=== PATIENT | female | born 1940 | race Caucasian/White ===

== ENCOUNTER 2017-04-18 12:53 | Emergency (ER) | payer MEDICARE ==
[2017-04-18] MEDS ORDERED: Ondansetron HCl/PF 4 MG/2 ML Vial ONE (13:18)
[2017-04-18 13:32] LABS: #Basophils 0.1 thou/uL (0.0-0.2); #Lymphocytes 2.4 thou/uL (1.20-3.40); #Monocytes 0.6 thou/uL (0.11-0.59); #Neutrophils 3.6 thou/uL (1.40-6.50); %Basophils 0.9 % (0.0-1.0); %Eosinophils 0.6 % (0.0-10.0); %Lymphocytes 35.7 % (21.0-51.0); %Monocytes 9.2 % (0.0-10.0); Hematocrit 40.6 % (36.0-47.0); Mean Platelet Volume 8.8 fL (7.4-10.4); Red Blood Cell (RBC) Count 4.35 mill/uL (4.20-5.40); White Blood Cell (WBC) Count 6.6 thou/uL (4.8-10.8)
[2017-04-18 13:51] LABS: ALT (SGPT) 22 U/L (8-55); AST (SGOT) 29 U/L (5-34); Alkaline Phosphatase 64 U/L (40-150); Anion Gap 15 mmol/L (10-20); BUN (Urea Nitrogen) 16 mg/dL (9.8-20.1); Bilirubin, Total 0.5 mg/dL (0.2-1.2); CK (CPK) 178 U/L (29-168); Calc. Creatinine Clearance 0 mL/min (70-130); Calcium 9.8 mg/dL (7.8-10.44); Carbon Dioxide 24 mmol/L (23-31); Chloride 104 mmol/L (98-107); Estimated GFR-MDRD 68; Globulin 2.7 g/dL (2.4-3.5); Lipase 90 U/L (8-78); Protein, Total 7.1 g/dL (6.0-8.3); Troponin I Less than 0.010 ng/mL (< 0.028)
--- NOTE | 2017-04-18 14:24 | RAD ---
CHEST 1 VIEW: History Weakness. COMPARISON: 02/14/15. FINDINGS: The cardiac silhouette is magnified by projection. Pulmonary vasculature is unremarkable. Right he midiaphragm remains slightly elevated. There is no confluent airspace consolidation or evidence of pneumothorax. IMPRESSION: No active cardiopulmonary abnormalities are demonstrated. POS: [facility]
--- NOTE | 2017-04-18 17:05 | CT ---
CT PULMONARY ANGIOGRAM WITH IV CONTRAST AND 3D POSTPROCESSIN04/18/17 HISTORY: 77-year-old female with dyspnea. FINDINGS: There is good contrast opacification of the pulmonary arterial vasculature without filling defects t o suggest pulmonary embolism. The thoracic aorta is well opacified without aneurysmal dissection. No pleural or pericardial effusions are seen. No pneumothorax, focal areas of consolidation, pulmonary nodules or lung masses are seen. Upper abdominal tomograms demonstrates cysts in the liver. A smal l hiatal hernia is present. There are mild degenerative changes in the spine. IMPRESSION: No CT evidence of pulmonary embolism. POS: [facility]
== END 2017-04-18 17:03 | disposition home or self-care (01) ==
LOC: SCSER 12:53
DX: R53.83 Other fatigue (principal); E78.5 Hyperlipidemia, unspecified; Z79.82 Long term (current) use of aspirin; Z79.899 Other long term (current) drug therapy
CPT/HCPCS: 71010; 71275; 80053; 82550; 82553; 83690; 83880; 84484; 85025; 85379; 93005; J2405

== ENCOUNTER 2018-03-25 13:41 | Outpatient (CLI) | payer MEDICARE ==
--- NOTE | 2018-03-25 15:26 | MMO ---
BILATERAL SCREENING MAMMOGRAM: HISTORY: A 77-year-old female. Screening mammography. Right lumpectomy 10 years ago. COMPARISON: 03/24/2017, 03/11/2016, 02/12/2015, 01/31/2014 TECHNIQUE: CC and MLO views of both breasts were submitted for interpretation. This patient's mammogram is revi ewed with the assistance of computer aided detection. FINDINGS: There are scattered fibroglandular densities throughout the left and right breasts. In the left quynh st, no suspicious dominant mass, architectural distortion, or suspicious calcification. Benign appea ring calcifications are identified. Stable post surgical change with asymmetric breast parenchyma in the upper outer right breast. IMPRESSION: BI-RADS Category 2-Benign findings. RECOMMENDATIONS: Annual mammogram. POS: [facility]
== END 2018-03-25 13:42 | disposition home or self-care (01) ==
LOC: SCSMAMMO 13:41
PROVIDERS: ATTEND Obstetrics & Gynecology
DX: Z12.31 Encounter for screening mammogram for malignant neoplasm of breast (principal)
CPT/HCPCS: 77067

== ENCOUNTER 2018-09-05 16:25 | Emergency (ER) | payer MEDICARE ==
[2018-09-05] MEDS ORDERED: Promethazine HCl 25 MG/ML VIAL ONE (16:34)
[2018-09-05] MEDS ORDERED: Ondansetron PF 4 MG/2 ML Vial ONE (16:34)
[2018-09-05] MEDS ORDERED: Meclizine HCl 25 MG TAB ONE (16:59)
--- NOTE | 2018-09-05 17:55 | CT ---
CT BRAIN WITHOUT CONTRAST: History: Dizziness, nausea, and vomiting. Comparison: None. 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 No acute hemorrhage or infarction. No midline shift or mass effect. Ve ntricular size and extraaxial CSF spaces are normal. Air fluid level left maxillary sinuses. Mastoids are clear. Calvarium is intact. IMPRESSION: No acute intracranial abnormality. POS: [facility]
== END 2018-09-05 17:35 | disposition home or self-care (01) ==
LOC: SCSER 16:25
DX: H81.13 Benign paroxysmal vertigo, bilateral (principal); E78.5 Hyperlipidemia, unspecified; Z85.72 Personal history of non-Hodgkin lymphomas; Z79.82 Long term (current) use of aspirin; Z79.899 Other long term (current) drug therapy
CPT/HCPCS: 70450; 93005; 96365; 96375; J2405; J2550

== ENCOUNTER 2018-10-26 09:21 | Outpatient (CLI) | payer MEDICARE ==
--- NOTE | 2018-10-26 10:47 | BD ---
DEXA BONE DENSITY STUDY: HISTORY: Postmenopausal. LUMBAR SPINE BMD (g/cm2) T-SCORE L1 0.658 -3.0 L2 0.741 -2.6 L3 0.765 -2.9 L4 1.109 +0.4 TOTAL 0.850 -1.8 LEFT FEMORAL NECK 0.648 -1.8 TOTAL 0.887 -0.5 IMPRESSION: Osteopenia of the left femoral neck and lumbar spine. Of note, the T-score values of L1, L2, and L3 fall within the osteoporosis range. In comparison to the 2017 study, the T-scores of the lumbar spin e have improved from -2.3 to -1.8. The total femur bone mineral density is improved from -1.1 to -0. 5, although the femoral neck bone mineral density has not significantly changed. POS: [facility]
== END 2018-10-26 09:22 | disposition home or self-care (01) ==
LOC: BICMAMMO 09:21
PROVIDERS: ATTEND Obstetrics & Gynecology
DX: M81.0 Age-related osteoporosis without current pathological fracture (principal); Z78.0 Asymptomatic menopausal state; M85.89 Other specified disorders of bone density and structure, multiple sites
CPT/HCPCS: 77080

== ENCOUNTER 2019-07-15 13:30 | Inpatient (IN) | payer MEDICARE ==
[2019-07-18 11:51] VITALS: BMI 24.9
[2019-07-18 13:55] LABS: Hemoglobin 13.5 g/dL (12.0-16.0); Mean Corpuscular HGB CONC 33.6 g/dL (32.0-36.0); Mean Corpuscular Hemoglobin 31.6 pg (27.0-31.0); Mean Corpuscular Volume 94.3 fL (78.0-98.0); Mean Platelet Volume 7.8 fL (7.4-10.4); Platelet Count 242 thou/uL (130-400); RBC Distribution Width 11.4 % (11.5-14.5); Red Blood Cell (RBC) Count 4.28 mill/uL (4.20-5.40); White Blood Cell (WBC) Count 4.9 thou/uL (4.8-10.8)
[2019-07-18 14:09] LABS: PTT 27.3 SEC (22.9-36.1); Prothrombin Time 12.8 SEC (12.0-14.7)
[2019-07-18 14:27] LABS: Anion Gap 13 mmol/L (10-20); BUN (Urea Nitrogen) 13 mg/dL (9.8-20.1); Calc. Creatinine Clearance 0 mL/min (70-130); Calcium 9.5 mg/dL (7.8-10.44); Carbon Dioxide 26 mmol/L (23-31); Chloride 103 mmol/L (98-107); Estimated GFR-MDRD 72; Glucose 90 mg/dL (83-110); Potassium 3.8 mmol/L (3.5-5.1); Sodium 138 mmol/L (136-145)
[2019-07-19] MEDS ORDERED: Midazolam HCl 2 mg/2 ml Vial ONE (08:31)
[2019-07-19] MEDS ORDERED: Rocuronium Bromide 10 MG/ML (10ML VIAL) ONE (10:14)
[2019-07-19] MEDS ORDERED: ePHEDrine/0.9% NaCl/PF SYRINGE 50 mg/10 ml ONE (10:14)
[2019-07-19] MEDS ORDERED: Glycopyrrolate 0.2 MG/ML 5 ML SYRINGE ONE (10:14)
[2019-07-19] MEDS ORDERED: PROPOFOL 200 MG/20 ML VIAL ONE (10:14)
[2019-07-19] MEDS ORDERED: Ondansetron PF 4 MG/2 ML Vial ONE (10:14)
[2019-07-19] MEDS ORDERED: Lidocaine 1% PF 5 ML VIAL ONE (10:14)
[2019-07-19] MEDS ORDERED: Dexamethasone 20 MG/5 ML VIAL ONE (10:14)
[2019-07-19] MEDS ORDERED: PHENYLEPHRINE-NS 100 MCG/ML 10 ML SYRINGE ONE (10:14)
[2019-07-19] MEDS ORDERED: Sodium Chloride 0.9% 10 ML ONE (10:40)
[2019-07-19] MEDS ORDERED: Thrombin 5000 UNITS/5 ML VIAL ONE ×3 (10:40→14:03)
[2019-07-19] MEDS ORDERED: Fentanyl 100 MCG/2 ML VIAL ONE (10:57)
[2019-07-19] MEDS ORDERED: Albumin 5% 500 ML ONE (12:34)
[2019-07-19] MEDS ORDERED: Phenylephrine HCL 10 MG/ML VIAL ONE (12:46)
[2019-07-19] MEDS ORDERED: PACU-Morphine 4MG/ML VIAL SLOW IVP PRN (15:13)
[2019-07-19] MEDS ORDERED: Promethazine HCl 25 MG/ML VIAL SLOW IVP PRN (15:13)
[2019-07-19] MEDS ORDERED: Ondansetron HCl/PF 4 MG/2 ML Vial IVP PRN (15:13)
[2019-07-19] MEDS ORDERED: Promethazine HCl 25 MG/ML VIAL IM PRN (15:13)
[2019-07-19] MEDS ORDERED: Morphine Sulfate 2 MG/ML SYRINGE SLOW IVP PRN (15:13)
[2019-07-19] MEDS ORDERED: HYDROmorphone 2 MG/ML VIAL SLOW IVP PRN (15:13)
[2019-07-19] MEDS ORDERED: HYDROmorphone 2 MG/ML VIAL ONE (15:44)
[2019-07-19] MEDS ORDERED: traMADol HCl 50 MG TAB PO PRN (16:20)
[2019-07-19] MEDS ORDERED: Milk Of Magnesia 30 ML UDCUP PO PRN (16:20)
[2019-07-19] MEDS ORDERED: Fleet Enema 133 ML BOT PR PRN (16:20)
[2019-07-19] MEDS ORDERED: Bisacodyl 10 MG SUPP PR PRN (16:20)
[2019-07-19] MEDS ORDERED: Ondansetron PF 4 MG/2 ML Vial IVP PRN (16:20)
[2019-07-19] MEDS ORDERED: Mag-Al 1200 mg/1200 mg/30 ML UDCUP PO PRN (16:20)
[2019-07-19] MEDS ORDERED: Morphine 2 MG/ML SYRINGE SLOW IVP PRN (16:20)
[2019-07-19] MEDS: Sodium Chloride 0.9% 1,000 ML IV SCH ×2 (19:45→20:40)
[2019-07-19] MEDS: Vit A,C & E/Lutein/Minerals Tablet PO SCH (19:46)
[2019-07-19] MEDS: ALPRAZolam 0.5 MG TAB PO SCH (19:46)
[2019-07-19] MEDS: Rosuvastatin 5 MG TAB PO SCH (19:46)
[2019-07-19] MEDS: Ubidecarenone 50 MG CAP PO SCH (19:46)
[2019-07-19] MEDS: Potassium Chloride 8 MEQ TAB PO SCH (19:48)
[2019-07-19] MEDS: CEFAZOLIN 2 GM in Premix Bag 1 BAG IVPB SCH (19:48)
[2019-07-20] MEDS: tiZANidine HCl 4 MG TAB PO PRN ×2 (02:40→13:34)
[2019-07-20] MEDS: HYDROcodone/Acetaminophen 7.5/325 mg Tablet PO PRN ×5 (02:40→22:14)
[2019-07-20] MEDS: CEFAZOLIN 2 GM in Premix Bag 1 BAG IVPB SCH ×3 (04:51→22:45)
[2019-07-20 05:48] LABS: #Basophils 0.1 thou/uL (0.0-0.2); #Monocytes 0.8 thou/uL (0.11-0.59); #Neutrophils 6.5 thou/uL (1.40-6.50); %Eosinophils 0.2 % (0.0-10.0); %Lymphocytes 11.8 % (21.0-51.0); %Monocytes 9.8 % (0.0-10.0); %Neutrophils 77.1 % (42.0-75.0); Hemoglobin 9.8 g/dL (12.0-16.0); Mean Corpuscular HGB CONC 33.8 g/dL (32.0-36.0); Mean Corpuscular Hemoglobin 31.9 pg (27.0-31.0); Mean Corpuscular Volume 94.4 fL (78.0-98.0); Mean Platelet Volume 8.1 fL (7.4-10.4); Platelet Count 176 thou/uL (130-400); RBC Distribution Width 11.1 % (11.5-14.5); Red Blood Cell (RBC) Count 3.06 mill/uL (4.20-5.40); White Blood Cell (WBC) Count 8.4 thou/uL (4.8-10.8)
[2019-07-20 06:12] LABS: Anion Gap 9 mmol/L (10-20); BUN (Urea Nitrogen) 11 mg/dL (9.8-20.1); Calc. Creatinine Clearance 72 mL/min (70-130); Calcium 7.7 mg/dL (7.8-10.44); Carbon Dioxide 26 mmol/L (23-31); Chloride 108 mmol/L (98-107); Estimated GFR-MDRD 86; Glucose 122 mg/dL (83-110); Sodium 139 mmol/L (136-145)
[2019-07-20] MEDS: Calcium Carbonate + Vit D 250 MG TAB PO SCH (08:45)
[2019-07-20] MEDS: Vit A,C & E/Lutein/Minerals Tablet PO SCH ×2 (08:45→22:14)
--- NOTE | 2019-07-20 09:16 | OP ---
DATE OF PROCEDURE: 07/19/2019 [employer] CERTIFIED NETWORK ASSOCIATE: Shania Melton PA-C. PREPROCEDURE DIAGNOSES: 1. Lumbar spondylolisthesis with chronic left L3 pedicle fracture and right L3 spondylolysis with progression of spondylolisthesis. 2. Low back and left leg pain greater than right leg pain. POSTPROCEDURE DIAGNOSES: 1. Lumbar spondylolisthesis with chronic left L3 pedicle fracture and right L3 spondylolysis with progression of spondylolisthesis. 2. Low back and left leg pain greater than right leg pain. PROCEDURES PERFORMED: 1. L3-L4 Nwe laminectomy with removal of abnormal facets in the pars for decompression of common dural tube at the exiting L3 and L4 nerve roots. 2. Placement of screw and rosa fixation, L3-L4. 3. Arthrodesis, L3-L4 posterolaterally with local bone autograft obtained from same incision of allograft and BMP. DESCRIPTION OF PROCEDURE: After informed consent was obtained from the patient, the patient was brought to the OR. Proper patient, pause, and identification were carried out. She was placed under excellent general endotracheal anesthesia and positioned prone on the OR table. All appropriate points were padded. We identified the L3-L4 dorsal spines. A linear dewey was drawn out over this area. This area was sterilely cleansed, prepared, and draped. Proper patient, pause, and identification were carried out. The wound was then opened with a combination of sharp, monopolar, and blunt dissection. The L3-L4 segments including dorsal spines, lamina, and abnormal facets were exposed. Pars fracture in the right L3 segment was identified. A New type laminectomy was performed with removal of the abnormal facets as well for complete decompression of the common dural tube in the exiting L3 and traversing L4 nerve roots. It became quite clear given the lordotic tilt of L3 into L4 that the inferior endplate of L3 and superior endplate of L4 could not be for interbody spacer placement and the patient's bone was quite osteoporotic and it was easier essentially to go into the L3 inferior vertebral body and L4 superior vertebral bodies and was to get into the disk space. As such, I opted for a posterolateral fusion at L3-L4 only. I then, using standard gross and fluoroscopic visualization, placed pedicle screws at L3 and L4. I used somewhat smaller diameter screws in typical as her pedicles were small and her bone quality was quite soft with significant osteoporosis. We were satisfied with gross and fluoroscopic visualization and CT scan spin during the decompression; however, I should note that her left L3 nerve root sleeve was quite thin including its attachment to the apparent dural tube and she did leak in the axilla of the left L3 nerve root a small amount of spinal fluid. I was able to pack this and this sealed on its own. We then turned our attention to final tightening once placement of rods occurred, placement of the BMP, local bone autograft obtained from same incision and allograft out in the posterior lateral regions, and DuraSeal was applied over the dura to protect it from BMP and to act as a dural sealant. The wound was then copiously irrigated, closed in anatomic layers, following meticulous hemostasis and sprinkling vancomycin powder. The patient emerged from anesthesia. Job ID: [id number]
--- NOTE | 2019-07-20 09:27 | PRG ---
DATE OF SERVICE: Ms. Rossi is postoperative day 1 from L3-L4 decompression fusion. She has left iliopsoas weakness and pain, but she is able to bend her knee up, but her strength is 3 minus. I suspect this is some irritation of the psoas muscle on the left side as her pedicles were quite thin and placement of the construct is certainly challenging. This will improve over time. Her hemoglobin is 9.8. We will give her 1 unit of blood as her blood pressure is a bit low at 98/60. We will mobilize her and the brace has been fitted. Job ID: [id number]
[2019-07-20 14:18] LABS: Hemoglobin 10.7 g/dL (12.0-16.0)
[2019-07-20] MEDS: Sodium Chloride 0.9% 1,000 ML IV SCH (18:43)
[2019-07-20] MEDS: Ubidecarenone 50 MG CAP PO SCH (22:13)
[2019-07-20] MEDS: Rosuvastatin 5 MG TAB PO SCH (22:14)
[2019-07-20] MEDS: ALPRAZolam 0.5 MG TAB PO SCH (22:15)
[2019-07-20] MEDS: Potassium Chloride 8 MEQ TAB PO SCH (22:51)
[2019-07-21] MEDS: CEFAZOLIN 2 GM in Premix Bag 1 BAG IVPB SCH ×2 (05:10→14:18)
[2019-07-21] MEDS: tiZANidine HCl 4 MG TAB PO PRN (05:14)
[2019-07-21] MEDS: HYDROcodone/Acetaminophen 7.5/325 mg Tablet PO PRN ×2 (05:14→17:17)
[2019-07-21] MEDS ORDERED: tiZANidine HCl 4 MG TAB PO PRN (07:28)
[2019-07-21 08:25] LABS: #Lymphocytes 1.3 thou/uL (1.20-3.40); #Monocytes 1.1 thou/uL (0.11-0.59); #Neutrophils 6.5 thou/uL (1.40-6.50); %Basophils 0.1 % (0.0-1.0); %Eosinophils 0.5 % (0.0-10.0); %Lymphocytes 14.3 % (21.0-51.0); %Monocytes 12.4 % (0.0-10.0); %Neutrophils 72.7 % (42.0-75.0); Hemoglobin 10.5 g/dL (12.0-16.0); Mean Corpuscular HGB CONC 33.5 g/dL (32.0-36.0); Mean Corpuscular Hemoglobin 31.8 pg (27.0-31.0); Mean Corpuscular Volume 94.9 fL (78.0-98.0); Mean Platelet Volume 7.9 fL (7.4-10.4); Platelet Count 153 thou/uL (130-400); RBC Distribution Width 11.8 % (11.5-14.5); Red Blood Cell (RBC) Count 3.29 mill/uL (4.20-5.40); White Blood Cell (WBC) Count 8.9 thou/uL (4.8-10.8)
[2019-07-21 08:44] LABS: Anion Gap 8 mmol/L (10-20); BUN (Urea Nitrogen) 10 mg/dL (9.8-20.1); Calc. Creatinine Clearance 69 mL/min (70-130); Carbon Dioxide 28 mmol/L (23-31); Chloride 103 mmol/L (98-107); Estimated GFR-MDRD 82; Glucose 119 mg/dL (83-110); Potassium 3.6 mmol/L (3.5-5.1); Sodium 135 mmol/L (136-145)
--- NOTE | 2019-07-21 09:11 | PRG ---
DATE OF SERVICE: 07/21/2019 Ms. Rossi is postoperative day #2 from L3-L4 decompression and fusion. She is in good spirits this morning and states that her pain is well controlled with oral pain medications. She states that her left iliopsoas pain has improved compared to yesterday and she has improvement in strength of her left lower extremity iliopsoas myotome. She is able to bend her knee more easily on the left. She has excellent strength throughout her bilateral lower extremity myotome. She was able to get her LSO brace fitted yesterday. She has since been mobilizing and was able to get up and ambulate to the restroom to brush her teeth last night. She still has a James catheter in place. Hemoglobin improved to 10.7 yesterday after receiving 1 unit of packed red blood cells. We will reassess CBC and BMP this morning. The patient has low blood pressure of 87/46 when seen around 7 o'clock this morning. We will continue to monitor this closely. We have changed the orders of tizanidine 4 mg to a decreased dose of 2 mg p.o. q.8 hours as needed for muscle spasm. At this time, we have consulted case management for [facility]. This was then discussed with the patient and she also agrees that it would be favorable for her to go to inpatient rehab for further mobilization and strength improvement. We will complete the MOT for this. We will re-evaluate the patient tomorrow, call sooner for any neurologic changes or concerns. Job ID: [id number]
[2019-07-21] MEDS: Vit A,C & E/Lutein/Minerals Tablet PO SCH ×2 (10:15→20:41)
[2019-07-21] MEDS: Calcium Carbonate + Vit D 250 MG TAB PO SCH (10:15)
[2019-07-21] MEDS: Acetaminophen 325 MG TAB PO PRN ×2 (10:23→20:52)
[2019-07-21] MEDS: Sodium Chloride 0.9% 1,000 ML IV SCH ×2 (14:18→22:21)
[2019-07-21] MEDS: Ubidecarenone 50 MG CAP PO SCH (20:41)
[2019-07-21] MEDS: Rosuvastatin 5 MG TAB PO SCH (20:41)
[2019-07-21] MEDS: Potassium Chloride 8 MEQ TAB PO SCH (20:41)
[2019-07-21] MEDS: ALPRAZolam 0.5 MG TAB PO SCH (20:53)
[2019-07-22] MEDS: HYDROcodone/Acetaminophen 7.5/325 mg Tablet PO PRN ×3 (01:15→21:57)
[2019-07-22] MEDS: Sodium Chloride 0.9% 1,000 ML IV SCH (04:08)
[2019-07-22] MEDS: Acetaminophen/Codeine 30-300mg Tablet PO PRN ×2 (04:09→08:27)
[2019-07-22] MEDS: Calcium Carbonate + Vit D 250 MG TAB PO SCH (08:21)
[2019-07-22] MEDS: Vit A,C & E/Lutein/Minerals Tablet PO SCH ×2 (08:21→22:00)
--- NOTE | 2019-07-22 12:50 | PRG ---
DATE OF SERVICE: 07/22/2019 Ms. Rossi is postoperative day #3 having undergone L3-L4 laminectomy with posterior lumbar fusion. The patient is doing well from a neurosurgical standpoint. She has been ambulating. Her left groin and hip pain have improved over the past few days. Her blood pressure is also improved as we have tried to limit her narcotic pain medication and muscle relaxants. The patient remains with good strength in the bilateral lower extremities. We hope to discharge her to inpatient rehab today and all her paperwork has been completed. Reviewed appropriate postoperative activity restrictions and wound care. The patient is very pleased with her outcome postoperatively and again we hope for discharge to inpatient rehab today. Job ID: [id number]
[2019-07-22] MEDS: ALPRAZolam 0.5 MG TAB PO SCH (21:58)
[2019-07-22] MEDS: Ubidecarenone 50 MG CAP PO SCH (22:00)
[2019-07-22] MEDS: Potassium Chloride 8 MEQ TAB PO SCH (22:00)
[2019-07-22] MEDS: Rosuvastatin 5 MG TAB PO SCH (22:00)
[2019-07-23] MEDS: Sodium Chloride 0.9% 1,000 ML IV SCH ×2 (02:52→15:34)
[2019-07-23] MEDS: HYDROcodone/Acetaminophen 7.5/325 mg Tablet PO PRN (03:12)
[2019-07-23] MEDS: Calcium Carbonate + Vit D 250 MG TAB PO SCH (08:30)
[2019-07-23] MEDS: Vit A,C & E/Lutein/Minerals Tablet PO SCH (08:30)
--- NOTE | 2019-07-23 08:43 | PRG ---
DATE OF SERVICE: 07/23/2019 The patient is postoperative day #4, status post L3-L4 laminectomy with fusion. Her pain and mobilization continue to improve with time and working with Physical Therapy. Her blood pressure has also improved as we have been watching her narcotic pain use. She is now getting up out of the bed with the assistance of nursing staff and ambulating to the bathroom. She continues to have a James catheter. On exam this morning, the patient is awake, alert, no acute distress. She has some pain with left straight leg raise. She is slightly weak over the left proximal leg. Sensation is intact to light touch. Skin is clean, dry, and intact. The patient continues to improve slowly with time. We will go ahead and remove her James catheter. I feel that she is appropriate for dismissal to rehab hopefully later today. Job ID: [id number]
[2019-07-23 12:01] VITALS: TEMP 98.2
[2019-07-23 15:13] VITALS: BP 115/72
[2019-07-23] MEDS: Acetaminophen/Codeine 30-300mg Tablet PO PRN (15:33)
== END 2019-07-23 19:30 | DRG 460 ==
LOC: SURG A 07-19 07:43
PROVIDERS: ADMIT Surgery; ATTEND Surgery
PROC: 0SG0071 Fusion of Lumbar Vertebral Joint with Autologous Tissue Substitute, Posterior Approach, Posterior Column, Open Approach (ICD-10-PCS; principal; 2019-07-19)
PROC: 3E0U0GB Introduction of Recombinant Bone Morphogenetic Protein into Joints, Open Approach (ICD-10-PCS; 2019-07-19)
PROC: 01NB0ZZ Release Lumbar Nerve, Open Approach (ICD-10-PCS; 2019-07-19)
DX: M43.16 Spondylolisthesis, lumbar region (principal); G97.41 Accidental puncture or laceration of dura during a procedure; M48.062 Spinal stenosis, lumbar region with neurogenic claudication; M54.16 Radiculopathy, lumbar region; I10 Essential (primary) hypertension; E78.5 Hyperlipidemia, unspecified; Z98.51 Tubal ligation status; M43.06 Spondylolysis, lumbar region; Y83.8 Other surgical procedures as the cause of abnormal reaction of the patient, or of later complication, without mention of misadventure at the time of the procedure; Y92.234 Operating room of hospital as the place of occurrence of the external cause
CPT/HCPCS: 36415; 36430; 76000; 80048; 85025; 85027; 85610; 85730; 86850; 86900; 86901; 93005; C1713; J0690; J1100; J1170; J2001; J2250; J2370; J2405; J2704; J3010; J3370; J3490; L0639; P9016; P9045

== ENCOUNTER 2019-07-18 08:02 | Outpatient (CLI) | payer MEDICARE ==
--- NOTE | 2019-07-19 11:09 | EKG ---
Test Reason : Blood Pressure : / mmHG Vent. Rate : 074 BPM Atrial Rate : 074 BPM P-R Int : 152 ms QRS Dur : 092 ms QT Int : 402 ms P-R-T Axes : 076 072 070 degrees QTc Int : 446 ms Normal sinus rhythm Normal ECG When compared with ECG of 05-SEP-2018 16:34, No significant change was found Confirmed by DR. Keara BANSAL ([id number]) on 07/19/2019 11:09:26 AM Referred By: JAMES Confirmed By:DR. Keara BANSAL
== END 2019-07-18 08:03 | disposition home or self-care (01) ==
LOC: LABBT 08:02
PROVIDERS: ATTEND Surgery
DX: Z01.818 Encounter for other preprocedural examination (principal); M43.16 Spondylolisthesis, lumbar region; M48.061 Spinal stenosis, lumbar region without neurogenic claudication; M54.16 Radiculopathy, lumbar region
CPT/HCPCS: 93005; 93010

== ENCOUNTER 2019-08-16 14:40 | Observation (INO) | payer MEDICARE ==
[2019-08-16 15:27] LABS: Hemoglobin 13.5 g/dL (12.0-16.0); Mean Corpuscular HGB CONC 32.9 g/dL (32.0-36.0); Mean Corpuscular Hemoglobin 30.7 pg (27.0-31.0); Mean Corpuscular Volume 93.5 fL (78.0-98.0); Mean Platelet Volume 7.5 fL (7.4-10.4); Platelet Count 194 thou/uL (130-400); RBC Distribution Width 12.5 % (11.5-14.5); White Blood Cell (WBC) Count 7.7 thou/uL (4.8-10.8)
--- NOTE | 2019-08-16 15:28 | RAD ---
Exam: Chest one view HISTORY:Hypotension. Previous surgery. Comparison: 04/18/2017 FINDINGS: Cardiac silhouette: Normal Aorta: Unremarkable Pulmonary vessels: Normal Costophrenic angles: Clear LUNGS: No masses or consolidation. Pneumothorax: None Osseous abnormalities: None IMPRESSION: No acute cardiopulmonary process.
[2019-08-16 15:44] LABS: ALT (SGPT) 28 U/L (8-55); AST (SGOT) 19 U/L (5-34); Albumin 3.8 g/dL (3.4-4.8); Alkaline Phosphatase 87 U/L (40-110); Anion Gap 12 mmol/L (10-20); BUN (Urea Nitrogen) 13 mg/dL (9.8-20.1); Bilirubin, Total 0.7 mg/dL (0.2-1.2); Calc. Creatinine Clearance 0 mL/min (70-130); Calcium 8.7 mg/dL (7.8-10.44); Carbon Dioxide 24 mmol/L (23-31); Chloride 107 mmol/L (98-107); Estimated GFR-MDRD 77; Globulin 2.2 g/dL (2.4-3.5); Glucose 87 mg/dL (83-110); Potassium 4.1 mmol/L (3.5-5.1); Sodium 139 mmol/L (136-145)
[2019-08-16 15:55] LABS: Band 7 % (5-11); Eosinophils 3 % (0-10); Lymphocytes 13 % (21-51); MDiff Complete? YES; Monocytes 19 % (0-10); Neutrophil 54 % (42-75); Platelet Morphology Comment Appears Adequate; Polychromasia SLIGHT = 2-3 cells (100X) (0-2/hpf); Reactive Lymphocytes 4 % (0-10)
--- NOTE | 2019-08-16 16:16 | CT ---
Exam: Head CT without contrast HISTORY: Altered mental status COMPARISON: 09/05/2018 FINDINGS: Hemorrhage: No intraparenchymal hemorrhage or extra-axial hematoma. Brain parenchyma: Cortical gordon-white matter differentiation is preserved. No mass effect or midline shift. Basilar cisterns are patent. Ventricular system: Ventricles and sulci are patent and symmetric. Calvarium: Intact. Sinuses and mastoid air cells: Adequate aeration. IMPRESSION: No acute intracranial process.
[2019-08-16 17:13] LABS: Bilirubin Negative (Negative); Blood, Urine Negative (Negative); Clarity Turbid (Clear); Glucose, Urine (Dipstick) Normal (Negative); Leukocyte Negative Leu/uL (Negative); Nitrite Negative (Negative); Protein, Urine (Dipstick) 10 mg/dL (Neg-Trace); Urobilinogen Normal mg/dL (Less than 2)
[2019-08-16] MEDS ORDERED: Ondansetron ODT 4 MG TAB PO PRN (20:05)
[2019-08-16] MEDS ORDERED: Guaifenesin DM 100-10/5 ML UDCUP PO PRN (20:05)
[2019-08-16] MEDS ORDERED: Acetaminophen 650 MG Suppository PR PRN (20:05)
[2019-08-16] MEDS ORDERED: Ondansetron PF 4 MG/2 ML Vial IVP PRN (20:05)
[2019-08-16] MEDS ORDERED: Acetaminophen 325 MG TAB PO PRN (20:05)
[2019-08-16] MEDS ORDERED: Rosuvastatin 5 MG TAB PO SCH (21:00)
[2019-08-16] MEDS ORDERED: Ubidecarenone 50 MG CAP PO SCH (21:00)
[2019-08-16] MEDS ORDERED: Senokot S 8.6-50 MG TAB PO PRN (21:00)
--- NOTE | 2019-08-16 21:15 | HP ---
PRIMARY CARE PHYSICIAN: Shai Alexandre MD. CHIEF COMPLAINT: Weakness and hypotension. HISTORY OF PRESENT ILLNESS: This is a 79-year-old white female, who is in the hospital about 1 month ago for laminectomy of L3-L4 by Dr. Grant. She had had some back pain and numbness and tingling down to her leg from a chronic back problem. During or after the surgery in the hospital, she had some low blood pressures, but she did well with physical therapy. She went to rehab and continued to improve. She has no more numbness, tingling, or pain and has been improving with her ambulation. She was not eating very well however at the rehab. Once she was discharged, she did go to her daughter and son-in-law's house where they have been getting agreed a lot more her appetite has improved and she has actually gained some weight. She was doing well there; however, over the last week, she has been getting a little bit weaker and in the last 2 days, she has been significantly weak. The home health nurse did notice some low blood pressures at one point down to 80 systolic, though usually in the 100s to 110s and then today, the patient had blood pressure down to the low 80s systolic and they called the doctor's office and were told to come in the emergency room. She just felt weak during that time and maybe a little bit lightheaded, but was able to do physical therapy today in spite of that, and had no syncopal episodes or chest pain or shortness of breath or any other symptoms with it, just feeling overall weak. In the emergency room, the patient's blood pressure was normal up to 120 systolic. However, after she got to the emergency room, she became very confused. She had a hard time getting her words out, maybe a little bit of slurred speech and very slow responses and she could not remember medical details to get to the doctor, had a hard time thinking of what was going on. This slowly cleared over about 15 to 30 minutes and she is back to her baseline mental status now. She had no focal neurologic signs at that time per the ER doctor and her blood pressure and vital signs were all stable. I did a CT scan of the head that was negative, so she is being put on observation to rule out acute stroke versus a TIA. PAST MEDICAL HISTORY: 1. 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 2. Hyperlipidemia. 3. Undetermined cardiac issue causing some presyncopal spells in the past. She was put on Cartia XT by her primary care doctor with resolution of these spells. Never had any high blood pressure though. No diagnosed arrhythmias. PAST SURGICAL HISTORY: 1. Surgery to the left neck for lymphoma removal. 2. Partial colectomy for lymphoma removal. 3. Appendectomy. 4. Tonsillectomy. 5. L3-L4 laminectomy. SOCIAL HISTORY: No tobacco, alcohol, or illicit drug use. She usually lives with her . Currently, she is living with her daughter and son-in-law while she recovers from surgery and her had been in the SNF for recent illness, he has just gotten back home. FAMILY HISTORY: Father with heart disease in his late 60s and prostate cancer. Mother with colon cancer. ALLERGIES: NO KNOWN DRUG ALLERGIES. CURRENT MEDICATIONS: 1. Omeprazole 20 mg two times a day. 2. Cartia XT 120 mg daily. 3. Rosuvastatin 5 mg daily. 4. Calcium plus D two tablets daily. 5. Coenzyme Q10 of 100 mg daily. 6. [place]-3-6-9 of 1200 mg daily. 7. Potassium 99 mg daily. 8. PreserVision AREDS 2 one capsule two times a day. REVIEW OF SYSTEMS: CONSTITUTIONAL: No fevers. No chills. EYES: No double vision or blurred vision. ENT: No congestion, drainage, or sore throat. CARDIOVASCULAR: No chest pain. No palpitations or racing heart. PULMONARY: No coughing, wheezing, or shortness of breath. GASTROINTESTINAL: No abdominal pain. She did have a little nausea after she ate Polish food for lunch. No vomiting that has now resolved. She had a little bit of constipation up until the last couple of days she has not taken any [place] since Thursday and her constipation is now resolved. No diarrhea. GENITOURINARY: No dysuria or hematuria. MUSCULOSKELETAL: No muscle aches or joint pains. Her back feels much much better since the surgery. SKIN: No rashes or lesions noted. NEUROLOGICAL: No numbness, tingling, or focal weakness. PHYSICAL EXAMINATION: VITAL SIGNS: Blood pressure 122/83, pulse 84, respirations 21, temperature 98.6, O2 saturation 97% on room air. GENERAL: This is a well-developed, well-nourished white female, in no acute distress. HEENT: Pupils equal, round, and reactive to light. Oropharynx clear without lesions, erythema, or exudate. NECK: Supple. No lymphadenopathy. No thyroid nodules or enlargement. No JVD. HEART: Regular rate and rhythm. No murmurs, rubs, or gallops. LUNGS: Clear to auscultation bilaterally. No wheezes, crackles, or rhonchi. ABDOMEN: Soft, nontender to palpation. Normoactive bowel sounds. No hepatosplenomegaly or other masses. EXTREMITIES: No clubbing, cyanosis, or edema. SKIN: No rashes or other lesions noted. Her incision over her lumbar spine is healing very well. NEUROLOGICAL: Intact strength and sensation in all extremities. Deep tendon reflexes 2+ in all extremities. No facial droop. No slurring of speech. No problems with word finding. Her memory is intact. PSYCHIATRIC: Alert, oriented x3. Normal mood and affect. LABORATORY DATA: CBC within normal limits. Complete metabolic panel is within normal limits. Troponin is negative x1. Urinalysis is negative for infection. Chest x-ray, I did review the chest x-ray done in the emergency room along with the radiologist's report. There is no evidence of acute cardiopulmonary process. CT of the brain done in the emergency room shows no evidence of acute stroke or other intracranial abnormality. ASSESSMENT AND PLAN: 1. Altered mental status, self-limited in the emergency room with slurred speech and trouble with word finding and memory loss. This is completely resolved. Concerned about the possibility of a transient ischemic attack or stroke, we will get an MRI of the brain and observe the patient in the hospital overnight. 2. Hypotension. The patient had some low blood pressures in the hospital during her previous hospitalization and then had this significant hypotension at home associated with weakness. We will go ahead and hold the patient's Cartia XT for now. Depending on how her blood pressure does tomorrow, we may restart it at a lower dose. If she does have any significant drops in blood pressure or abnormalities on her telemetry monitoring, then we may need to get Cardiology see her tomorrow. We will go ahead and get orthostatic blood pressures as well. 3. Hyperlipidemia. Resume the patient's home medication. 4. Gastrointestinal prophylaxis. We will resume the patient's omeprazole. 5. Deep venous thrombosis prophylaxis. Put the patient on Lovenox subcu. 6. Code status. I did discuss this with the patient. She is a full code. Should she be incapacitated, her medical decision maker will be her . His name is Pritesh Rossi followed by her daughter, Vianey Mac. Job ID: [id number]
[2019-08-17] MEDS: Vit A,C & E/Lutein/Minerals Tablet PO SCH ×2 (01:51→09:53)
[2019-08-17] MEDS: Sodium Chloride 0.9% 1,000 ML IV SCH ×2 (01:57→09:58)
[2019-08-17 03:33] VITALS: BMI 25.5
[2019-08-17 05:06] LABS: Anion Gap 10 mmol/L (10-20); BUN (Urea Nitrogen) 10 mg/dL (9.8-20.1); Calc. Creatinine Clearance 74 mL/min (70-130); Calcium 7.9 mg/dL (7.8-10.44); Carbon Dioxide 24 mmol/L (23-31); Chloride 110 mmol/L (98-107); Estimated GFR-MDRD 86; Glucose 97 mg/dL (83-110); Potassium 3.8 mmol/L (3.5-5.1); Sodium 140 mmol/L (136-145)
[2019-08-17 05:38] LABS: Hemoglobin 11.6 g/dL (12.0-16.0); Mean Corpuscular HGB CONC 32.6 g/dL (32.0-36.0); Mean Corpuscular Hemoglobin 30.9 pg (27.0-31.0); Mean Corpuscular Volume 94.7 fL (78.0-98.0); Mean Platelet Volume 7.4 fL (7.4-10.4); Platelet Count 172 thou/uL (130-400); RBC Distribution Width 12.6 % (11.5-14.5); Red Blood Cell (RBC) Count 3.75 mill/uL (4.20-5.40); White Blood Cell (WBC) Count 6.2 thou/uL (4.8-10.8)
[2019-08-17 05:39] LABS: Band 13 % (5-11); Eosinophils 3 % (0-10); Lymphocytes 24 % (21-51); MDiff Complete? YES; Monocytes 8 % (0-10); Neutrophil 52 % (42-75)
--- NOTE | 2019-08-17 08:07 | PDOC.HOSPP ---
- Subjective Encounter Date: 08/17/19 Encounter Time: 09:45 Subjective: Patient with no further AMS. BP holding up well with d/c of diltiazem and no arrhythmias. - Objective Vital Signs & Weight: Vital Signs (12 hours) Temp Pulse Resp BP BP BP Pulse Ox 08/17/19 07:31 98.4 F 75 12 114/75 95 08/17/19 04:00 97.8 F 88 16 115/76 123/92 H 115/76 94 L 08/16/19 22:04 98.5 F 81 18 120/77 97 08/16/19 22:00 98.5 F 81 18 120/77 97 Weight Weight 149 lb Result Diagrams: 08/17/19 04:38 08/17/19 04:38 Hospitalist ROS - Review of Systems Constitutional: denies: fever, chills Respiratory: denies: cough, shortness of breath Cardiovascular: denies: chest pain, palpitations, orthopnea Gastrointestinal: denies: nausea, vomiting, abdominal pain Neurological: denies: weakness, numbness, change in speech, confusion - Medication Medications: Active Medications Generic Name Dose Route Start Last Admin Trade Name Freq PRN Reason Stop Dose Admin Coenzyme Q10 100 mg 08/16/19 21:00 08/17/19 01:51 Coenzyme Q10 PO 100 mg HS KYLE Administration Sodium Chloride 1,000 mls @ 125 mls/hr 08/17/19 01:45 08/17/19 01:57 Normal Saline 0.9% IV 1,000 mls .Q8H KYLE Administration Multivitamins/Minerals 1 tab 08/16/19 21:00 08/17/19 01:51 Ocuvite With Lutein PO 1 tab BID KYLE Administration Rosuvastatin Calcium 5 mg 08/16/19 21:00 08/17/19 01:51 Crestor PO 5 mg HS KYLE Administration - Exam General Appearance: NAD, awake alert ENT: moist mucosa Heart: RRR, no murmur, no gallops, no rubs Respiratory: CTAB, no wheezes, no rales, no ronchi Gastrointestinal: soft, non-tender, non-distended, normal bowel sounds Neurological: no focal deficits Psychiatric: normal affect, normal behavior, A&O x 3 Hosp A/P (1) AMS (altered mental status) Code(s): R41.82 - ALTERED MENTAL STATUS, UNSPECIFIED Status: Resolved (2) Hypotension Status: Resolved (3) Hyperlipidemia Code(s): E78.5 - HYPERLIPIDEMIA, UNSPECIFIED Status: Chronic - Plan BP doing well overnight, no orthostasis Holding diltiazem MRI pending, if negative can d/c home f/u cardiology outpatient about diltiazem
[2019-08-17] MEDS ORDERED: Enoxaparin Sodium 40 MG/0.4 ML SYRINGE SC SCH (09:00)
[2019-08-17] MEDS ORDERED: Calcium Carbonate + Vit D 1 TAB PO SCH (09:00)
[2019-08-17 11:41] VITALS: TEMP 99.6
--- NOTE | 2019-08-17 13:08 | MRI ---
MRI BRAIN WITHOUT CONTRAST: HISTORY: Altered mental status CORRELATION: CT scan from 08/16/2019. FINDINGS: No restricted diffusion is seen. There are foci of T2 prolongation in the periventricular white matte r, consistent with chronic small vessel ischemic disease. The ventricular size is appropriate and the basilar cisterns are patent. No evidence of acute infarct, hemorrhage, midline shift is seen. There is a small arachnoid cyst in t he left middle cranial fossa. The visualized paranasal sinuses and mastoid air cells are well-aerated. IMPRESSION: No evidence of acute intracranial process.
[2019-08-17 15:03] VITALS: BP 97/72
[2019-08-17] MEDS ORDERED: Potassium Chloride 8 MEQ TAB PO SCH (21:00)
--- NOTE | 2019-08-18 05:21 | DIS ---
DATE OF ADMISSION: 08/16/2019 DATE OF DISCHARGE: 08/17/2019 PRIMARY CARE PHYSICIAN: Shai Alexandre MD. REASON FOR ADMISSION: Weakness and hypotension. DIAGNOSES AT DISCHARGE: 1. Altered mental status, resolved. 2. Hypertension, resolved. 3. Hyperlipidemia. PROCEDURES: 1. CT of the brain without contrast showing no acute intracranial process. 2. MRI of the brain without contrast showing no evidence of acute intracranial process. SUMMARY OF HOSPITAL COURSE: This is a 79-year-old white female, in the hospital for a month ago for laminectomy by Dr. Grant. She had some improvement in her back pain. Between hospitalizations, she had some low blood pressures, but was able to do well physical therapy and went to rehab. She did not eat well in rehab, but it did improve in her strength. She went home to her daughter's house and has been eating much better and again improving in her strength. However, her blood pressures are continuing to run a kind of low and for the last week, she has been getting more tired, and then in the last 2 days she started getting significantly weak. Home health nurse did notice blood pressures down to the 80 systolic. In the emergency room, the patient's blood pressure was noted to be normal. However, she became very confused, had hard time getting her words out, could not give any of her history. This lasted for 15-30 minutes and then she was back to her baseline mental status. CT of the head in the ER was normal. The patient was put in observation in the hospital. Her blood pressure was monitored as well as her mental status. She had no further alterations in her mental status. She had an MRI of the brain that was also negative. The patient was on some diltiazem for undetermined spells in the past, put on there by her primary care physician. She has never been diagnosed with any sort of arrhythmias. We did hold this in the hospital when her blood pressure was normal throughout her hospitalization. She had no more weakness and she remained in normal sinus rhythm with a good rate on her telemetry monitoring, so she is being discharged home. DISCHARGE MANAGEMENT: Discharged home. ACTIVITY: As tolerated. DIET: Regular diet. FOLLOWUP: Follow up with Dr. Adrian Alexandre in 7 days, can discuss the diltiazem, but will hold it for now. DISCHARGE MEDICATIONS: 1. Coenzyme Q10 100 mg at night. 2. Calcium plus D3 ER 2 tablets daily. 3. Omeprazole 120 mg twice daily. 4. Potassium gluconate at night. 5. Rosuvastatin 5 mg at night. 6. ICaps AREDS 2 tablets, one tablet twice daily. 7. The patient is to discontinue her diltiazem. Job ID: [id number]
== END 2019-08-17 14:50 | disposition home or self-care (01) ==
LOC: ERS 14:40 → ERHOLD 17:48 → 2SE 21:49
PROVIDERS: ADMIT Emergency Medicine; ATTEND Emergency Medicine
DX: I95.9 Hypotension, unspecified (principal); R53.1 Weakness; R41.82 Altered mental status, unspecified; I10 Essential (primary) hypertension; E78.5 Hyperlipidemia, unspecified; Z85.72 Personal history of non-Hodgkin lymphomas; Z79.899 Other long term (current) drug therapy; Z90.49 Acquired absence of other specified parts of digestive tract; Z98.890 Other specified postprocedural states
CPT/HCPCS: 51701; 70450; 70551; 71045; 80048; 81003; 82550; 84484; 85025; 87040; 87086; 93005; 96360; 96361; 96372; 97139 ×3; 99285; G0378 ×3; 36415; 80053; 84443; A4353; J1650

== ENCOUNTER 2019-08-31 08:23 | Outpatient (CLI) | payer MEDICARE ==
--- NOTE | 2019-08-31 09:09 | RAD ---
LUMBAR SPINE SERIES 2 VIEWS: HISTORY: Followup surgery. FINDINGS: The vertebral bodies are normal in height. The bones appear demineralized. Bilateral pedicle screws are placed at the L3-4 level. Spondylolisthesis is similar to the 03/18/2019 study. Marked disk narr owing at L4-5 and L5-S1 are noted. IMPRESSION: Bilateral pedicle screw placement at the L3-4 level. Spondylolisthesis is unchanged since the 019 study. POS: [facility]
== END 2019-08-31 08:24 | disposition home or self-care (01) ==
LOC: TBSIIMAG 08:23
PROVIDERS: ATTEND Surgery
DX: M54.5 Low back pain (principal); M43.16 Spondylolisthesis, lumbar region; Z96.9 Presence of functional implant, unspecified
CPT/HCPCS: 72100

== ENCOUNTER 2020-03-22 13:10 | Outpatient (CLI) | payer MEDICARE ==
--- NOTE | 2020-03-22 14:41 | MRI ---
MRI of thelumbar spine with and without contrast: 03/22/2020 COMPARISON:None available HISTORY:Low back pain radiating down the left leg with radiculopathy/numbness TECHNIQUE: Multiplanar multisequence MR imaging of thelumbar spine with and without contrast Findings:The sagittal STIR imaging demonstrates no focal area of osseous marrow edema. On the basis o f 5 lumbar type vertebral bodies, the conus medullaris terminates at the L1 level. T12-L1: There is disc space narrowing with disc desiccation and disc bulge. Anterior osteophyte forma tion noted. No significant central canal or neural foraminal stenosis. L1-2: Mild retrolisthesis noted measuring approximately 6 mm. There is disc space narrowing and disc desiccation with mild disc bulge. Mild bilateral facet hypertrophy. No significant central canal stenosis. Mild bilateral neural foraminal stenosis. L2-3: Bilateral facet hypertrophy and hypertrophy of the ligamentum flavum. No central canal or neura l foraminal stenosis. L3-4: Anterolisthesis noted measuring 9 mm. There is disc space narrowing with degenerative endplate change. Bilateral laminectomy changes are present. No central canal stenosis. Bilateral L3 and L4 pedicle screws are present with vertically oriented interlocking rods. Moderate right neural foramina l stenosis and severe left neural foraminal stenosis noted. L4-5: There is disc space narrowing and degenerative endplate change with anterior osteophyte formati on and a disc osteophyte complex. Mild bilateral facet hypertrophy. No significant central canal stenosis. Moderate bilateral neural foraminal stenosis, right greater than left. L5-S1: There is disc space narrowing and disc desiccation. No significant central canal or neural for aminal stenosis. There is a nonspecific postoperative fluid collection posterior to the thecal sac at the L3-4 level m easuring 2 cm craniocaudal dimension and 1.6 cm AP dimension, and 3.4 cm in transverse dimension. Postcontrast imaging demonstrates no abnormal enhancement involving the contents of the thecal sac. The post contrast imaging demonstrates no abnormal enhancement involving the intervertebral discs or the imaged osseous structures. The imaged retroperitoneal structures demonstrate no acute findings. IMPRESSION:Postoperative and degenerative changes of the lumbar spine as detailed above. Most signifi cant stenosis involves the left neural foramen at L3-4.
--- NOTE | 2020-03-22 14:58 | RAD ---
LUMBAR SPINE: 03/22/20 Four views. AP and lateral views obtained. Lateral views obtained with neutral, flexion, and extension. INDICATIONs: Back pain. Status post laminectomy. Pedicle screws transfixL4 and L5. There is a grade I to II spondylolisthesis at L4-5 with loss of dis c space. The other vertebral bodies maintain height and alignment. Loss of disc space with degenerati ve change noted at L5-S1. No significant change with flexion or extension. IMPRESSION: Degenerative and postoperative changes lumbar spine with spondylolisthesis at L4-5. POS: [facility]
== END 2020-03-22 13:11 | disposition home or self-care (01) ==
LOC: SCSMRI 13:10
PROVIDERS: ATTEND Surgery
DX: M79.606 Pain in leg, unspecified (principal); M47.816 Spondylosis without myelopathy or radiculopathy, lumbar region; M48.061 Spinal stenosis, lumbar region without neurogenic claudication; Z98.890 Other specified postprocedural states; Z98.1 Arthrodesis status
CPT/HCPCS: 72110; 72158; 82565

== ENCOUNTER 2023-05-13 09:52 | Inpatient (IN) | payer MEDICARE ==
[2023-05-13 10:12] LABS: #Monocytes 1.2 thou/uL (0.11-0.59); #Neutrophils 6.7 thou/uL (1.40-6.50); %Basophils 0.4 % (0.0-1.0); %Eosinophils 0.2 % (0.0-10.0); %Monocytes 10.9 % (0.0-10.0); %Neutrophils 62.1 % (42.0-75.0); Hematocrit 41.2 % (36.0-47.0); Hemoglobin 13.9 g/dL (12.0-16.0); Mean Corpuscular HGB CONC 33.7 g/dL (32.0-36.0); Mean Corpuscular Hemoglobin 32.6 pg (27.0-31.0); Mean Corpuscular Volume 96.5 fl (78.0-98.0); Mean Platelet Volume 10.3 fL (7.4-10.4); Platelet Count 275 10x3/uL (130-400); RBC Distribution Width 13.3 % (11.5-14.5); Red Blood Cell (RBC) Count 4.27 mill/uL (4.20-5.40); White Blood Cell (WBC) Count 10.7 10x3/uL (4.8-10.8)
[2023-05-13 10:27] LABS: INR-International Normal Ratio 1.4; PTT 30.8 sec (22.9-36.1); Prothrombin Time 17.7 sec (12.0-14.7)
[2023-05-13 10:34] LABS: ALT (SGPT) 18 U/L (8-55); AST (SGOT) 29 U/L (5-34); Albumin 4.7 g/dL (3.4-4.8); Alkaline Phosphatase 49 U/L (40-110); Anion Gap 17 mmol/L (10-20); BUN (Urea Nitrogen) 17 mg/dL (9.8-20.1); Bilirubin, Total 0.6 mg/dL (0.2-1.2); Calc. Creatinine Clearance 0 mL/min (70-130); Carbon Dioxide 21 mmol/L (23-31); Chloride 103 mmol/L (98-107); Estimated GFR 66; Globulin 2.7 g/dL (2.4-3.5); Glucose 83 mg/dL (83-110); Potassium 3.7 mmol/L (3.5-5.1); Protein, Total 7.4 g/dL (5.8-8.1); Sodium 137 mmol/L (136-145)
[2023-05-13 10:38] LABS: Troponin I Less than 0.010 ng/mL (< 0.028)
[2023-05-13] MEDS ORDERED: Ondansetron PF 4 MG/2 ML Vial ONE (10:39)
[2023-05-13] MEDS ORDERED: Morphine 4 MG/ML VIAL ONE (10:39)
[2023-05-13] MEDS ORDERED: Aspirin 325 MG TAB ONE (10:39)
[2023-05-13] MEDS ORDERED: Iopamidol-370 76% 500 ML MDV (1 ML CHARGE) ONE (11:11)
[2023-05-13 11:57] LABS: Bacteria/HPF None Seen HPF (None Seen); Bilirubin Negative (Negative); Blood, Urine Negative (Negative); CAUTI Indications for Culture Alt mental st,lethar; Clarity Clear (Clear); Glucose, Urine (Dipstick) Normal (Negative); Ketone, Urine 20 mg/dL (Negative); Leukocyte Negative Leu/uL (Negative); Nitrite Negative (Negative); Protein, Urine (Dipstick) Negative (Neg-Trace); RBC/HPF 0-3 HPF (0-3); Specific Gravity, Urine 1.029 (1.002-1.036); Squamous Epithelial 0-3 HPF (0-3); Urobilinogen Normal mg/dL (Less than 2); WBC/HPF 0-3 HPF (0-3)
[2023-05-13 12:02] LABS: Urine Culture Reflex No No
[2023-05-13] MEDS ORDERED: hydrALAZINE 20 MG/ML VIAL SLOW IVP PRN (12:35)
[2023-05-13] MEDS ORDERED: HYDROcodone/Acetaminophen 5/325 mg Tablet PO PRN (12:35)
[2023-05-13] MEDS ORDERED: Ondansetron ODT 4 MG TAB PO PRN (12:35)
[2023-05-13] MEDS ORDERED: Acetaminophen 650 MG Suppository PR PRN (12:35)
[2023-05-13] MEDS ORDERED: Ondansetron PF 4 MG/2 ML Vial IVP PRN (12:35)
[2023-05-13] MEDS ORDERED: Acetaminophen 325 MG TAB PO PRN (12:35)
[2023-05-13 13:22] VITALS: BMI 24.4
[2023-05-13] MEDS: Morphine 4 MG/ML VIAL SLOW IVP PRN (14:14)
[2023-05-13 14:18] LABS: Troponin I Less than 0.010 ng/mL (< 0.028)
[2023-05-13 17:36] LABS: Troponin I Less than 0.010 ng/mL (< 0.028)
[2023-05-13] MEDS: Atorvastatin Calcium 40 MG TAB PO SCH (21:07)
[2023-05-13] MEDS: HYDROcodone/Acetaminophen 5/325 mg Tablet PO PRN (21:08)
[2023-05-14] MEDS: Morphine 4 MG/ML VIAL SLOW IVP PRN ×2 (03:45→10:44)
[2023-05-14 05:33] LABS: Cardiac Risk 2.7 (Less than 4.5)
[2023-05-14] MEDS: Aspirin 81 mg Enteric Coated Tablet PO SCH (08:48)
[2023-05-14] MEDS: Gabapentin 100 MG CAP PO SCH ×2 (15:32→20:18)
[2023-05-14] MEDS: HYDROcodone/Acetaminophen 5/325 mg Tablet PO PRN (15:58)
[2023-05-14] MEDS: Atorvastatin Calcium 40 MG TAB PO SCH (20:18)
[2023-05-15] MEDS: Morphine 4 MG/ML VIAL SLOW IVP PRN ×2 (00:55→08:46)
[2023-05-15 05:35] LABS: Anion Gap 12 mmol/L (10-20); BUN (Urea Nitrogen) 13 mg/dL (9.8-20.1); Calc. Creatinine Clearance 63 mL/min (70-130); Calcium 8.6 mg/dL (7.8-10.44); Carbon Dioxide 23 mmol/L (23-31); Chloride 107 mmol/L (98-107); Estimated GFR 86; Glucose 88 mg/dL (83-110); Magnesium 2.2 mg/dL (1.6-2.6); Potassium 4.3 mmol/L (3.5-5.1); Sodium 138 mmol/L (136-145)
[2023-05-15] MEDS: Gabapentin 100 MG CAP PO SCH ×3 (08:16→20:54)
[2023-05-15] MEDS: Aspirin 81 mg Enteric Coated Tablet PO SCH (08:16)
[2023-05-15] MEDS ORDERED: Methocarbamol 500 MG TAB PO PRN (08:52)
[2023-05-15] MEDS: Metoprolol Tartrate 25 MG TAB PO SCH ×2 (10:46→20:53)
[2023-05-15] MEDS ORDERED: Rosuvastatin 10 MG TAB PO SCH (21:00)
[2023-05-15] MEDS: HYDROcodone/Acetaminophen 5/325 mg Tablet PO PRN (23:40)
[2023-05-16 04:47] VITALS: TEMP 97.5
[2023-05-16] MEDS ORDERED: Levothyroxine Sodium 75 MCG TAB PO SCH (06:00)
[2023-05-16] MEDS: Metoprolol Tartrate 25 MG TAB PO SCH (08:20)
[2023-05-16] MEDS: Aspirin 81 mg Enteric Coated Tablet PO SCH (08:20)
[2023-05-16] MEDS: HYDROcodone/Acetaminophen 5/325 mg Tablet PO PRN (08:21)
[2023-05-16] MEDS: Gabapentin 100 MG CAP PO SCH (08:22)
[2023-05-16 15:21] VITALS: BP 126/72
== END 2023-05-16 11:50 | disposition home or self-care (01) | DRG 551 ==
LOC: ERS 09:52 → 2SE 11:47 → OBSVTOIN 05-14 15:49
PROVIDERS: ADMIT Internal Medicine; ATTEND Internal Medicine
PROC: 3E0R33Z Introduction of Anti-inflammatory into Spinal Canal, Percutaneous Approach (ICD-10-PCS; principal; 2023-05-15)
PROC: 3E0R3BZ Introduction of Anesthetic Agent into Spinal Canal, Percutaneous Approach (ICD-10-PCS; 2023-05-15)
DX: M54.16 Radiculopathy, lumbar region (principal); G93.41 Metabolic encephalopathy; N13.30 Unspecified hydronephrosis; M51.16 Intervertebral disc disorders with radiculopathy, lumbar region; K21.9 Gastro-esophageal reflux disease without esophagitis; E03.9 Hypothyroidism, unspecified; I10 Essential (primary) hypertension; M35.00 Sjogren syndrome, unspecified; R41.82 Altered mental status, unspecified; E78.5 Hyperlipidemia, unspecified; M47.814 Spondylosis without myelopathy or radiculopathy, thoracic region; M47.815 Spondylosis without myelopathy or radiculopathy, thoracolumbar region; M48.05 Spinal stenosis, thoracolumbar region; M51.15 Intervertebral disc disorders with radiculopathy, thoracolumbar region; M43.15 Spondylolisthesis, thoracolumbar region; N32.89 Other specified disorders of bladder
CPT/HCPCS: 36415; 36416; 51701; 70450; 70496; 70498; 70551; 71045; 72148; 74176; 80048; 80053; 80061; 81001; 83735; 84484; 85025; 85610; 85730; 86140; 93005; 94760; 96361; 96374; 96375; 96376; G0378; J2270; J2405

== ENCOUNTER 2025-02-28 07:37 | Outpatient (CLI) | payer MEDICARE | END 2025-02-28 07:38 | disposition home or self-care (01) | LOC: MRI 07:37 | PROVIDERS: ATTEND Specialist | DX: M51.16 Intervertebral disc disorders with radiculopathy, lumbar region (principal); M47.26 Other spondylosis with radiculopathy, lumbar region; M51.35 Other intervertebral disc degeneration, thoracolumbar region; M48.061 Spinal stenosis, lumbar region without neurogenic claudication; M51.379 Other intervertebral disc degeneration, lumbosacral region without mention of lumbar back pain or lower extremity pain; M48.07 Spinal stenosis, lumbosacral region; M48.05 Spinal stenosis, thoracolumbar region; M43.16 Spondylolisthesis, lumbar region; M47.815 Spondylosis without myelopathy or radiculopathy, thoracolumbar region; Z98.890 Other specified postprocedural states | CPT/HCPCS: 72148 ==